=== PATIENT | female | born 2000 | race Caucasian/White ===

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

== ENCOUNTER 2022-01-29 09:26 | Emergency (ER) | payer BC, MEDICAID ==
[~2022-01-29] VITALS: Ht 165.1 cm; Wt 50.0 kg
[~2022-01-29 09:26] MED LIST: DULCOLAX STOOL100 MG PO
[2022-01-29 09:44] VITALS: TEMP 98.1
[2022-01-29 10:22] LABS: BASO # 0.1 K/mm3 (0.0-0.2); EOS # 0.8 K/mm3 (0.0-0.7); EOS % 14.4 % (0.0-4.0); GRAN # 3.2 K/mm3 (1.4-6.5); GRAN % 54.7 % (42.2-75.2); HEMOGLOBIN 11.9 g/dl (12.0-15.0); LYMPH # 1.3 K/mm3 (1.2-3.4); LYMPH % 22.2 % (20.0-51.0); MEAN CELL VOLUME 77 fl (80.0-95.0); MEAN CORPUSCULAR HEMOGLOBIN 25 pg (26-32); MEAN CORPUSCULAR HGB CONC 33 g/dl (33.0-37.0); MEAN PLATELET VOLUME 10.2 fl (7.4-10.4); MONO # 0.4 K/mm3 (0.1-0.6); MONO % 7.5 % (1.7-9.3); PLATELET COUNT 272 K/mm3 (130-400); RED BLOOD COUNT 4.74 M/mm3 (4.10-5.30); REDCELL DISTRIBUTION WIDTH-CV 13.8 % (11.5-14.5)
[2022-01-29] MEDS ORDERED: ZOLOFT 100MG100 MG PO (10:23)
[2022-01-29 10:24] LABS: HEMATOCRIT 36.6 % (35.0-45.0)
[2022-01-29 10:39] LABS: ALBUMIN 4.4 gm/dL (3.5-5.0); BILIRUBIN,TOTAL 0.5 mg/dL (0.2-1.2); CALCIUM 8.9 mg/dL (8.4-10.2); CREATININE, serum 0.64 mg/dL (0.57-1.11); POTASSIUM 3.7 mmol/L (3.5-4.5)
[2022-01-29 11:56] VITALS: BP 113/67; PULSE 68
== END 2022-01-29 12:02 | disposition home or self-care (01) ==
LOC: COL.ER 09:26
PROVIDERS: Personal Emergency Response Attendant
DX: R55 Syncope and collapse (principal)
CPT/HCPCS: J7030